=== PATIENT | male | born 1970 | race Caucasian/White ===

== ENCOUNTER 2017-12-02 14:42 | Emergency (ER) | payer OTHER ==
[2017-12-02] MEDS ORDERED: TDAP ADULT 0.5 ML INJ (BOOSTRIX) IM ONE (15:03)
--- NOTE | 2017-12-02 15:11 | EDPHY ---
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 Linear laceration. No paresthesia. No motor deficits. PHYSICAL EXAM (Prior to examination, patient consented to physical exam, hands were washed and my usual and customary physical exam procedures followed) 1) GENERAL: Well-developed, well-nourished, alert and oriented. Appears to be in no acute distress. 2) HEAD: Normocephalic 3) HEENT: sclera anicteric 4) LUNGS: Breathing comfortably. 5) SKIN: Right thenar eminence 3.5 cm linear laceration 6) MUSCULOSKELETAL: Abduction abduction flexion extension intact with no deficits . The muscle fascia is lacerated. 7) NEUROLOGIC: Full sensation and two-point discrimination intact Smoking Status: Current every day smoker Constitutional: Initial Vital Signs Temperature (C) 36.6 C 12/02/17 14:51 Heart Rate 81 12/02/17 14:51 Respiratory Rate 16 12/02/17 14:51 Blood Pressure 160/99 H 12/02/17 14:51 O2 Sat (%) 97 12/02/17 14:51 O2 Delivery Mode Room Air Allergies/Adverse Reactions: No Known Allergies Allergy (Unverified 12/02/17 14:51) Home Medications: Medication Instructions Recorded Cephalexin [Keflex] 500 mg PO TID 5 Days cap 12/02/17 MDM/Departure - [facility] Procedures: Procedure: Laceration repair. I explained the indications, risks and benefits for both laceration repair and anesthetic administration. Verbal consent was obtained from the patient. The laceration on the right thenar eminence was anesthetized using 0.5% bupivicaine with epinephrine. After anesthetic administered the patient was observed for a period of time and had no apparent adverse effects. The wound was cleaned, prepped, draped in normal sterile fashion and explored to its base. No foreign body seen, no foreign bodies palpated. A muscle fascia laceration is noted. No tendon injury was identified. Skin closed with 7 simple interrupted 5 O Ethilon sutures. The wound repair was complex. The procedure was performed by myself. Patient has been informed that scarring will occur, although efforts have been made to minimize this. Procedure: Splint A Velcro thumb spica splint was applied by ER corrosion control technician in order to reduce stress on the area After application of the splint I returned and re-examined the patient. The splint was adequately immobilizing the joint and distal to the splint the patient's circulation and sensation were intact. Patient shows no signs of compartment syndrome. Was given orthopedic precautions. Medications Given: Discontinued Medications Diphtheria/Tetanus/Acell Pertussis (Boostrix) 0.5 ml IM .ONCE ONE Stop: 12/02/17 15:04 Last Admin: 12/02/17 15:08 Dose: Not Given ED Course/Re-evaluation: Re-evaluation with serial examinations. Patient is noted to have a muscle fascia laceration to the thenar eminence. No motor deficits on exam. Skin has been closed and he is placed in a Velcro thumb spica to reduce stress on the area. I have recommended follow-up with Hand surgery for further evaluation have provided him this information as well. I am starting him on 5 days of prophylactic antibiotics as well. His tetanus has been updated. He feels comfortable being discharged. Usual and customary wound precautions and instructions provided. Care of patient under supervision of secondary supervising physician Dr High. - Depart Disposition: Home, Routine, Self-Care Clinical Impression: Laceration of right hand Qualifiers: Encounter type: initial encounter Foreign body presence: without foreign body Qualified Code(s): S61.411A - Laceration without foreign body of right hand, initial encounter Condition: Good Instructions: Care For Your Stitches (ED), Laceration (ED) Additional Instructions: Return to the ER if you develop redness, swelling, discharge, warmth to the wound, red streaks going up your arm, or any other symptoms that concern you. Your sutures need to be removed in 10 days. Recommend you see a hand surgeon before then. Prescriptions: Cephalexin [Keflex] 500 mg PO TID 5 Days cap Referrals: Srikanth Garcia MD [Medical Doctor] - 2-3 days, call for appt. (Dr. Srikanth Garcia is a hand surgeon)
[2017-12-02 16:06] VITALS: BP 125/78
== END 2017-12-02 16:06 | disposition home or self-care (01) ==
PROC: 0HQFXZZ Repair Right Hand Skin, External Approach (ICD-10-PCS; principal; 2017-12-02)
DX: S61.411A Laceration without foreign body of right hand, initial encounter (principal); F17.200 Nicotine dependence, unspecified, uncomplicated; X58.XXXA Exposure to other specified factors, initial encounter; Y92.61 Building [any] under construction as the place of occurrence of the external cause; Y99.0 Civilian activity done for income or pay; Y93.H9 Activity, other involving exterior property and land maintenance, building and construction